=== PATIENT | female | born 1955 | race Caucasian/White ===

== ENCOUNTER 2021-01-15 10:15 | Inpatient (IN) | payer OTHER ==
[~2021-01-15] VITALS: Ht 157.5 cm; Wt 47.0 kg
--- NOTE | ~2021-01-15 | PROC ---
[facility] [address] [place] [address] PROCEDURE REPORT Name: ANGEL DUBOIS Room: [address] IN M.R.#: [id number] Admission: 01/15/21 Attend Phys: Rabia Oliver Discharge: 01/18/21 Date of : 55 Report #: [id number] THIS REPORT FOR: cc: FAM - No family physician/PCP FAM - No family physician/PCP [facility],Medical Records Staff ~ For GI report, please see the Provation report in Perceptive 7 content. By: [id number] Records Staff MARTHA /XAVIER
[~2021-01-15 10:15] MED LIST: ALBUTEROL INHAL17 GM IH; NORCO 5-325 TA1 EACH PO; PREDNISONE50 MG PO; ZPAK PO
[2021-01-15 10:27] VITALS: BP 100/70
[2021-01-15 12:46] LABS: ABSOLUTE LYMPHOCYTES 0.4 thou/uL (0.8-5.3); ABSOLUTE MONOCYTES 0.6 thou/uL (0.0-1.2); BASOPHILS 0.6 %; EOSINOPHILS 0.6 %; HEMATOCRIT 20.3 % (37.0-47.0); HEMOGLOBIN 7.1 gm/dL (12.0-15.0); LYMPHOCYTES 5.4 %; MCH 38.7 pg (26.0-34.0); MCHC 34.9 g/dL (28.0-37.0); MONOCYTES 8.6 %; MPV 6.4 fl. (7.2-11.1); NUCLEATED RBCS 1 /100WBC; PLATELET COUNT* 202 thou/uL (150-400); POLYS 84.8 %; RBC 1.83 mil/uL (4.20-5.00); RDW-CV 30.6 % (10.5-14.5); WBC 7.1 thou/uL (4.0-11.0)
[2021-01-15 12:55] LABS: CREATININE 0.7 mg/dL (0.6-1.3)
[2021-01-15 12:57] LABS: POTASSIUM 2.4 mmol/L (3.5-5.1)
[2021-01-15 13:00] LABS: ALBUMIN 3.5 g/dL (3.4-5.0); TOTAL BILIRUBIN 0.7 mg/dL (<0.1-1.0); TOTAL PROTEIN 7.5 g/dL (6.4-8.2)
--- NOTE | 2021-01-15 14:43 | EKG ---
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: TDS : 1955 Requested By: Alis Fernando Order Number: [id number] : Charly Hernandez Measurements Intervals Andrew Rate: 84 P: 75 RI: 139 QRS: 66 QRSD: 82 T: -20 QT: 466 QTc: 551 Interpretive Statements Sinus rhythm Atrial premature complex Borderline repolarization abnormality Prolonged QT interval No previous ECG available for comparison Electronically Signed On 01-15-2021 14:43:46 CDT by Charly Hernandez [email or web address] <ELECTRONICALLY SIGNED> By: Charly Hernandez MD, [facility] 01/15/21 1443 1247 1247 Charly Hernandez MD, [facility] /EPI
[2021-01-15 14:48] LABS: ANISOCYTOSIS 2+; MACROCYTES 2+; PLATELET ESTIMATE ADEQUATE
[2021-01-15 15:31] LABS: % SATURATION 97 % (20-39); IRON 261 ug/dL (50-175)
[2021-01-15 15:42] LABS: CALCIUM 9.1 mg/dL (8.5-10.1); CREATININE 0.8 mg/dL (0.6-1.3)
[2021-01-15 15:44] LABS: POTASSIUM 2.5 mmol/L (3.5-5.1)
[2021-01-15 15:45] LABS: PHOSPHORUS* 5.3 mg/dL (2.5-4.9)
--- NOTE | 2021-01-15 15:48 | NUR ---
BLOOD TRANSFUSION STARTED AT 1546 ADMINISTERED IN 18G RIGHT FOREARM. VERIFIED BY 2 NURSES STARTED INFUSION AT 75 ML/HR RN AT BEDSIDE TO MONITOR PT CLOSELY. NO S/S OF OF FEVER, CHILLS, ACHES AT THIS TIME
[2021-01-15 17:12] VITALS: BP 138/69
[2021-01-15 18:00] VITALS: BP 135/83
[2021-01-15 19:00] VITALS: BP 135/73
[2021-01-15 20:00] VITALS: BP 107/62
[2021-01-15 23:57] VITALS: BP 113/71
[2021-01-16 04:00] VITALS: BP 132/80
[2021-01-16 05:28] LABS: HEMATOCRIT 22.2 % (37.0-47.0); HEMOGLOBIN 7.9 gm/dL (12.0-15.0); MCH 36.2 pg (26.0-34.0); MCHC 35.6 g/dL (28.0-37.0); MPV 6.6 fl. (7.2-11.1); RBC 2.18 mil/uL (4.20-5.00); RDW-CV 28.9 % (10.5-14.5); WBC 4.8 thou/uL (4.0-11.0)
[2021-01-16 05:34] LABS: MCV 101.7 fL (80.0-100.0)
--- NOTE | 2021-01-16 05:34 | NUR ---
ASSUMED CARE OF PT AFTER REPORT AT 1930. PT A&OX4. ANXIOUS. VSS. PHYSICAL ASSESSMENT COMPLETED AND CHARTED. PT ON RA. PT TRACING SR ON TELE. PT COMPLAINED OF BILATERAL LEG CRAMPING. MED GIVEN PER MAR. FALL PRECAUTIONS IN PLACE. CALL LIGHT WITHIN REACH. UPDATED PTS REGARDING PTS CONDITION.
[2021-01-16 05:54] LABS: CALCIUM 8.8 mg/dL (8.5-10.1); CREATININE 0.6 mg/dL (0.6-1.3)
[2021-01-16 06:11] LABS: POTASSIUM 2.9 mmol/L (3.5-5.1)
[2021-01-16 08:00] VITALS: BP 116/77
[2021-01-16 11:53] VITALS: BP 138/82
[2021-01-16 12:26] LABS: PROTIME 10.5 Seconds (9.20-11.50)
[2021-01-16 12:49] LABS: URINE BLOOD NEGATIVE (Negative); URINE CLARITY CLEAR; URINE COLOR YELLOW; URINE GLUCOSE-RANDOM NEGATIVE (Negative); URINE KETONES 2+ (Negative); URINE LEUKOCYTES-REFLEX NEGATIVE (Negative); URINE NITRITE-REFLEX NEGATIVE (Negative); URINE PROTEIN NEGATIVE (Negative); URINE UROBILINOGEN 0.2 E.U./dl (0.2-1.0)
[2021-01-16 12:56] LABS: ICTOTEST (BILI CONFIRMATORY) Negative (Negative); URINE BILIRUBIN 1+ (Negative)
--- NOTE | 2021-01-16 13:28 | NUR ---
Pt is A&O. Resides at home with . Hx of ETOH. Independent. No hx of HH or SNF, no DME. Goal is home at dc, no needs anticipated. Therapy evals pending. GI following, ?need for colon. CT abd and chest today. Tranfused. Anticipate dc in 1-2 days.
[2021-01-16 15:16] VITALS: BP 140/87
[2021-01-16 18:34] LABS: MAGNESIUM 1.6 mg/dL (1.8-2.4); POTASSIUM 3.6 mmol/L (3.5-5.1)
[2021-01-16 20:00] VITALS: BP 157/91
[2021-01-17 01:15] VITALS: BP 115/68
--- NOTE | 2021-01-17 03:28 | NUR ---
ASSUMED CARE OF PT AFTER REPORT AT 1930. PT A&OX4. VSS. PHYSICAL ASSESSMENT COMPLETED AND CHARTED. PT ON RA. PT TRACING SR ON TELE. PT UP STANDBY TO BSC. PT COMPLAINED OF BILATERAL FEET PAIN-MED GIVEN PER SEP. RELAYED POTASSIUM & MAGNESIUM RESULT TO DR ANGLIN ORDERED. PT INSTRUCTED NPO POST MIDNIGHT FOR EGD & COLONOSCOPY TODAY. COMMUNICATES UDNERSTANDING. FALL PRECAUTIONS IN PLACE. CALL LIGHT WITHIN REACH.
[2021-01-17 04:28] VITALS: BP 100/67
[2021-01-17 04:34] LABS: HEMATOCRIT 21.9 % (37.0-47.0); HEMOGLOBIN 7.7 gm/dL (12.0-15.0); MCH 35.8 pg (26.0-34.0); MCV 102.1 fL (80.0-100.0); MPV 6.5 fl. (7.2-11.1); RBC 2.14 mil/uL (4.20-5.00); RDW-CV 28.3 % (10.5-14.5); WBC 6.2 thou/uL (4.0-11.0)
[2021-01-17 04:35] LABS: ALBUMIN 3.1 g/dL (3.4-5.0); CALCIUM 8.8 mg/dL (8.5-10.1); CREATININE 0.5 mg/dL (0.6-1.3); POTASSIUM 3.2 mmol/L (3.5-5.1); TOTAL BILIRUBIN 0.6 mg/dL (<0.1-1.0); TOTAL PROTEIN 6.3 g/dL (6.4-8.2)
[2021-01-17 07:30] VITALS: BP 145/84
--- NOTE | 2021-01-17 09:00 | NUR ---
pt received 1000mls tap water enema at 0900 am. results clear. when enema done transporter came and got pt for colonoscopy via w/c approx 0930.
[2021-01-17 13:00] VITALS: BP 124/75
--- NOTE | 2021-01-17 13:51 | NUR ---
Rectal mass found. Pt to have colon and egd today. May need liver biopsy at a later date. Anticipate dc in 1-2 days.
--- NOTE | 2021-01-17 16:22 | NUR ---
Spoke with Dr. Barboza regarding consult for possible liver biopsy. Awaiting ultrasound to perform test and will see if clinically stable on Friday for Dr. Piper to perform a liver biopsy.
[2021-01-17 16:55] VITALS: BP 136/87
[2021-01-17 19:14] LABS: HEMATOCRIT 21.8 % (37.0-47.0); HEMOGLOBIN 7.7 gm/dL (12.0-15.0); MCH 36.3 pg (26.0-34.0); MCHC 35.2 g/dL (28.0-37.0); MPV 6.2 fl. (7.2-11.1); NUCLEATED RBCS 0 /100WBC; PLATELET COUNT* 161 thou/uL (150-400); RBC 2.12 mil/uL (4.20-5.00); RDW-CV 29.8 % (10.5-14.5); WBC 6.1 thou/uL (4.0-11.0)
[2021-01-17 19:36] LABS: ABSOLUTE EOSINOPHILS 0.1 thou/uL (0.0-0.7); ABSOLUTE LYMPHOCYTES 0.3 thou/uL (0.8-5.3); ABSOLUTE MONOCYTES 0.1 thou/uL (0.0-1.2); ABSOLUTE NEUTROPHILS 5.7 thou/uL (1.6-8.1); PLATELET ESTIMATE ADEQUATE
[2021-01-17 19:37] LABS: ANISOCYTOSIS 2+; HYPOCHROMASIA 2+; MICROCYTES 1+
--- NOTE | 2021-01-17 19:54 | NUR ---
A&OX 4, PWD. PT HAD EGD AND COLONOSCOPY. SHOWS NO MASS PER REPORT. PT UP WITH STAND BY ASSIST TO BATHROOM. WILL BE NPO AFTER MIDNIGHT FOR MRI AND POSSIBLE LIVER BX. POTASSIUM LEVEL THIS AM 3.2 AND WAS GIVEN 4 BAG'S 20MEQ POTASSIUM. REDRAW WAS PUT IN FOR 1945. LUNGS CLEAR, HEART TONES REGULAR. +BS X 4 QUADS. PPP AND NO EDEMA. C/O KELSEA. FOOT PAIN AND WANTED SOMETHING STRONGER THAN TYLENOL. PUT CALL IN TO DR. SANTACRUZ. WILL CONTINUE TO MONITOR.
[2021-01-18] VITALS: BP 111/69
[2021-01-18 02:06] LABS: HEPATITIS B SURFACE AG Negative (Negative)
[2021-01-18 04:00] VITALS: BP 122/74
[2021-01-18 04:39] LABS: HEMATOCRIT 21.8 % (37.0-47.0); HEMOGLOBIN 7.6 gm/dL (12.0-15.0); MCV 102.9 fL (80.0-100.0); MPV 6.5 fl. (7.2-11.1); RBC 2.12 mil/uL (4.20-5.00); RDW-CV 28.9 % (10.5-14.5); WBC 4.3 thou/uL (4.0-11.0)
[2021-01-18 04:53] LABS: ALBUMIN 2.9 g/dL (3.4-5.0); CALCIUM 8.8 mg/dL (8.5-10.1); CREATININE 0.5 mg/dL (0.6-1.3); POTASSIUM 3.8 mmol/L (3.5-5.1); TOTAL BILIRUBIN 0.5 mg/dL (<0.1-1.0); TOTAL PROTEIN 5.9 g/dL (6.4-8.2)
--- NOTE | 2021-01-18 06:20 | NUR ---
ASSUMED CARE OF PATIENT AT 1930. PATIENT REPORTED FEELING ANXIOUS AND CONFUSED. SHE STATED SHE THOUGHT SHE WAS IN LONGTERM WHEN SHE WOKE UP. PATIENT REQUESTED MEDICATION TO PUT HER TO SLEEP OR SHE WAS CALLING HER TO COME GET HER. ADMINISTERE PRN LORAZEPAM ORDERED. AT APPROXIMATELY 0615 ATTEMPTED TO COMPLETE MRI SCREENING. INFORMED PATIENT ABOUT THE TEST AND PATIENT STATED "UM I THINK NO". ATTEMPTED TO EXPLAIN THE NEED FOR THE MRI. PATIENT CONTINUES TO REFUSE
[2021-01-18 08:00] VITALS: BP 156/86
[2021-01-18] MEDS ORDERED: PROTONIX40 M2 PO (10:45)
[2021-01-18 12:00] VITALS: BP 141/89
[2021-01-18] MEDS ORDERED: HYDROCODON-ACE1 EAC7 PO (12:46)
[2021-01-18] MEDS ORDERED: ATIVAN0.5 M1 PO (12:46)
[2021-01-18] MEDS ORDERED: GABAPENTIN 100100 MG PO (12:46)
[2021-01-18 12:52] VITALS: BP 156/86
[2021-01-18 13:17] LABS: CA 19-9 13 U/mL (0-35)
--- NOTE | 2021-01-18 13:19 | NUR ---
Plan MRI and liver biopsy today. Anticipate dc later today. No needs
--- NOTE | 2021-01-18 13:35 | NUR ---
PT WAS DISCHARGED HOME WITH ALL BELONGINGS, ACCOMAPNIED BY SPOUSE AND DAUGHTHER. SALINE [employer]OCK REMOVED HUB INTACT. PT DENIES PAIN ON DISCHARGE. PT HAS GOOD UNDERSTANDING OF WHY SHE NEEDS TO SEE THE HEMATOLOGY DR. DUE TO HER LOW HGB. PT ALSO NEEDS TO GET A PRIMARY CARE DR. PT DISCHARGED HOME WITH ALL BELONGINGS.
--- NOTE | 2021-01-19 15:09 | PATH ---
[address] [address] PATHOLOGY RPT PROCEDURE Name: ANGEL DUBOIS Room: [address] IN M.R.#: [id number] Admission: 01/15/21 Date of : 55 Discharge: 01/18/21 Report #: [id number] Path Case #: [id number] [facility] Accession Number: [id number] . 01 Material submitted: . ANTRUM - ANTRAL BIOPSY FOR H. PYLORI . 01 Clinical history: . ANTRODUODENAL AND GASTRIC EROSIONS REFLUX, ESOPHIGITITS, GASTRITIS HIATAL HERNIA; SIGMOID DIVERTICULITIS . 02 Diagnosis: Antral biopsy (antroduodenal and gastric erosions): - Mild chronic and severe active antral gastritis with rare Helicobacter pylori organisms, negative for granulomas and dysplasia. . (ALPHONSO:gracy; 01/19/2021) [facility] 01/19/2021 1246 Local . 02 Comment: Special stain: H. pylori immuno . (ALPHONSO:mml; 01/19/2021) . 02 Electronically signed: . Judd Maurice MD, Pathologist NPI- [id number] . 01 Gross description: . The specimen is received in formalin, labeled "James, Angel, antroduodenal and gastric erosions". Received is a single segment of pale colin tissue measuring 0.3 cm in maximum dimensions. The specimen is submitted entirely in cassette A1. Upon careful inspection and filtration, no additional tissue is found remaining in the container. ([facility]; 01/18/2021) NRI/NRI 01/19/2021 1246 Local . 02 Pathologist provided ICD-10: K29.50, B96.81 . 02 CPT . 168883, E33397 Specimen Comment: A courtesy copy of this report has been sent to [phone] Specimen Comment: Report sent to DR. ANGLIN Specimen Comment: Report sent to Performed at: [address] [place] [address] PATHOLOGY RPT PROCEDURE Name: ANGEL DUBOIS Room: [address] IN M.R.#: [id number] Admission: 01/15/21 Date of : 55 Discharge: 01/18/21 Report #: [id number] Path Case #: [id number] [address] [facility] [address], [place] [id number] MD Papito Ivan MD Phone: [phone] Performed at: [address] [facility] [address], [place], [place] [id number] MD Judd Maurice MD Phone: [phone]
--- NOTE | 2021-01-21 13:02 | CON ---
[address] [address] CONSULTATION Name: ANGEL DUBOIS Room: [address] IN M.R.#: [id number] Admission: 01/15/21 Attend Phys: Rabia Oliver Discharge: 01/18/21 Date of : 55 Report #: [id number] THIS REPORT FOR: cc: STEFAN - Danelle family physician/PCP STEFAN - Danelle family physician/PCP Terrance Espana MD ~ DATE OF CONSULTATION: 01/18/2021 REASON FOR CONSULTATION: Liver lesions. REFERRING PHYSICIAN: ____. HISTORY OF PRESENT ILLNESS: The patient is a 66-year-old woman who has a history of alcohol abuse, who presented to the emergency room with complaints of weakness and bilateral feet pain. She describes the pain as a hot and "tingly with radiation" bilaterally. The patient has been having difficulty with ambulating and was brought to the hospital by her and daughter. She reported unintentional weight loss up to 20 pounds over 6 weeks. ____ ordered CT of abdomen and pelvis and CT scan of the chest that showed 4 liver lesions up to 1.[address] of the chest did not show any lung lesions. A CT of the pelvis showed possible wall thickening on the rectum. Oncology consult is requested. She had a GI consult done. She had EGD and colonoscopy done yesterday. Colonoscopy did not show any rectal mass. She is seen with her at bedside. The patient is since very upset. She says she is fine. She just wants to go home. Denies nausea or vomiting. She admits having poor appetite and weight loss, but does not have complaints of abdominal pain, cough, shortness of breath, headaches. PAST MEDICAL HISTORY: Significant for alcohol abuse, COPD. FAMILY HISTORY: Positive for breast cancer in her aunt. SOCIAL HISTORY: She is a heavy alcohol user, drinks 3 ounces of alcohol daily for decades. She has been smoking in the past a pack a day, but lately she is vaping. REVIEW OF SYSTEMS: See above. PHYSICAL EXAMINATION: GENERAL: Reveals a chronically ill-appearing woman, not in acute distress. VITAL SIGNS: Blood pressure 100/67, heart rate is 99, respirations 17, temperature 98.6. HEENT: No thrush. NECK: Supple. There is no peripheral lymphadenopathy. HEART: Normal S1, [place] [address] CONSULTATION Name: DUBOISANGEL Room: [address]#: [id number] Admission: 01/15/21 Attend Phys: Rabia Oliver Discharge: 01/18/21 Date of : 55 Report #: [id number] LUNGS: Clear. ABDOMEN: Soft. No organomegaly. EXTREMITIES: Lower extremities, no edema. MENTAL STATUS: Alert, oriented x 3. LABORATORY DATA: White count 6.2, hemoglobin 7.7, platelets 159, MCV 102.1. AST 85, alkaline phosphatase 74, total bilirubin 0.6, ALT 24. Ferritin 1249, folate 1.4. Vitamin B12 of 277. CEA, alpha fetoprotein normal. ASSESSMENT AND PLAN: Liver lesions of unclear etiology. The patient is scheduled to have MRI and possible biopsy of liver lesions. Agree with this workup. Anemia secondary to folate deficiency, possible B12 deficiency. ____. <ELECTRONICALLY SIGNED> By: Terrance Espana MD 01/21/21 1302 [id number] Espana MD /nt
== END 2021-01-18 13:15 | disposition home or self-care (01) | DRG 812 ==
LOC: M.ERS 10:15 → M.ORTHSURG 13:55 → M.TBA-ER 13:55 → M.ORTHSURG 17:37 → M.2W 01-16 16:57
PROVIDERS: Emergency Medicine Emergency Medical Services; Family Medicine; Internal Medicine Gastroenterology; Nurse Practitioner Adult Health; ADMIT Internal Medicine; ATTEND Internal Medicine
PROC: 30233N1 Transfusion of Nonautologous Red Blood Cells into Peripheral Vein, Percutaneous Approach (ICD-10-PCS; principal; 2021-01-15)
PROC: 0DJD8ZZ Inspection of Lower Intestinal Tract, Via Natural or Artificial Opening Endoscopic (ICD-10-PCS; 2021-01-17)
PROC: 0DB68ZX Excision of Stomach, Via Natural or Artificial Opening Endoscopic, Diagnostic (ICD-10-PCS; 2021-01-17)
DX: D64.9 Anemia, unspecified (principal); E51.2 Wernicke's encephalopathy; Z68.1 Body mass index [BMI] 19.9 or less, adult; F10.20 Alcohol dependence, uncomplicated; E87.6 Hypokalemia; K70.10 Alcoholic hepatitis without ascites; E83.42 Hypomagnesemia; R63.4 Abnormal weight loss; K62.9 Disease of anus and rectum, unspecified; K76.9 Liver disease, unspecified; K21.00 Gastro-esophageal reflux disease with esophagitis, without bleeding; K59.00 Constipation, unspecified; K44.9 Diaphragmatic hernia without obstruction or gangrene; K31.9 Disease of stomach and duodenum, unspecified; K26.9 Duodenal ulcer, unspecified as acute or chronic, without hemorrhage or perforation; K57.30 Diverticulosis of large intestine without perforation or abscess without bleeding; R93.3 Abnormal findings on diagnostic imaging of other parts of digestive tract; Z20.822 Contact with and (suspected) exposure to COVID-19; Z98.891 History of uterine scar from previous surgery; Z79.899 Other long term (current) drug therapy; Z87.891 Personal history of nicotine dependence